=== PATIENT | female | born 1975 | race Hispanic/Latino ===

== ENCOUNTER 2020-07-31 10:52 | Day surgery (SDC) | payer OTHER, BC ==
[2020-07-31 09:44] LABS: Absolute Lymphocytes (CBC) 1.8 K/uL (0.7-4.9); Basophils % 0.8 % (0-1.3); Hematocrit 40.1 % (36.0-45.0); Lymphocytes % 29.9 % (15.3-44.8); MPV 9.9 fL (7.6-11.3); RBC Red Blood Cell Count 4.66 M/uL (3.86-4.86)
[2020-07-31 10:13] LABS: BUN Blood Urea Nitrogen 14 mg/dL (7-18); Bicarbonate 30 mmol/L (21-32); Glucose Level 86 mg/dL (74-106); Potassium 4.1 mmol/L (3.5-5.1); Sodium Level 142 mmol/L (136-145)
--- NOTE | 2020-07-31 10:40 | RAD REPORT ---
EXAM DESCRIPTION: Scarlett Dong (2 Views)07/31/2020 9:41 am CLINICAL HISTORY: Preop for mass removal from left axilla COMPARISON: 2018 FINDINGS: The lungs appear clear of acute infiltrate. The heart is normal size IMPRESSION: No acute abnormalities displayed
[2020-07-31] MEDS ORDERED: Ringers Lactate 1,000 ML IV ONE (11:17)
[2020-07-31] MEDS ORDERED: CEFAZOLIN/SWI 1gm 0 GM/0 ML SYR ONE (11:17)
[2020-07-31] MEDS ORDERED: CIPROFLOXACIN HCL 500 MG TAB PO ONE (12:20)
[2020-07-31] MEDS ORDERED: FENTANYL CITR 100 MCG/2 ML ONE (12:27)
[2020-07-31] MEDS ORDERED: propofoL 200 MG/20 ML VIAL IV ONE (12:28)
[2020-07-31] MEDS ORDERED: LIDOCAINE 2% MPF 5 ML VIAL ONE (12:28)
[2020-07-31] MEDS ORDERED: MIDAZOLAM HCL 2 MG/2 ML INJ ONE (12:29)
[2020-07-31] MEDS ORDERED: ONDANSETRON 4 MG/2 ML VIAL ONE (12:29)
[2020-07-31] MEDS ORDERED: KETOROLAC 30 MG/ML INJ ONE (12:29)
[2020-07-31] MEDS ORDERED: dexAMETHasone 10 MG/ML VIAL ONE (12:29)
[2020-07-31] MEDS ORDERED: CIPROFLOXACIN HCL 500 MG TAB ONE (12:39)
--- NOTE | 2020-07-31 13:12 | P.BOP ---
Preoperative diagnosis: Left axillary infected subQ mass Postoperative diagnosis: same Primary procedure: Excisional biopsy Left axillary infected subQ mass 2.5 x 2.5 cm Estimated blood loss: <10cc Specimen: mass Findings: mass Anesthesia: General Transferred to: Recovery Room Condition: Good
[2020-07-31 13:22] VITALS: O2SAT 100
[2020-07-31] MEDS ORDERED: CODEINE 30MG/APAP 300MG TAB PO ONE (14:20)
[2020-07-31] MEDS ORDERED: CODEINE 30MG/APAP 300MG TAB ONE (14:34)
[2020-07-31 14:36] VITALS: BP 118/79; TEMP 97.2
--- NOTE | 2020-07-31 15:57 | EKG ---
Test Date: 2020-07-31 Test Time: 08:21:22 Advance Agent: SAMARA MEASUREMENT RESULTS: Intervals: Rate: 77 NJ: 158 QRSD: 70 QT: 394 QTc: 445 [place]: P: 66 NJ: 158 QRS: 61 T: 52 INTERPRETIVE STATEMENTS: Normal sinus rhythm Normal ECG No previous ECG available for comparison Electronically Signed On 07-31-20 15:55:59 CDT by Stewart Cantu
--- NOTE | 2020-07-31 21:16 | OP ---
Date of Procedure: 07/31/2020 Surgeon: Stone Neely MD Preoperative Diagnosis: Left axillary infected subcutaneous mass. Postoperative Diagnosis: Left axillary infected subcutaneous mass. Procedure: Excisional biopsy of left axillary infected subcutaneous mass 2.5 x 2.5 cm. Specimen: Mass. Anesthesia: General plus local. Indication: This is a case of a female who comes to us with a tender infected subcutaneous mass. St arted on antibiotics. started to improve, but the mass needs to be removed. Benefits, al ternatives, and risks of excision fully explained which include, but not limited to infection, bleedi ng, damage to adjacent structures, anesthesia complication, recurrence, OH, and even . She also understands this may not relieve her symptoms. She might need more than one surgical intervention a nd she may require wound care. She signed a consent. Procedure In Detail: The patient was brought to the operating room, placed in supine position. Anes thesia was done without complication. The area of concern was previously marked by me and the patien t in the holding room. Time-out was called. Axillary area was prepped and draped in sterile fashion . A small incision was made over the area of concern. Incision was carried down to subcutaneous tis esmer until we found the mass. It was removed. The area was irrigated. Hemostasis was obtained and t hen the area was closed with 3-0 chromic in deep layers and then a nylon in superficial layer. The p atient tolerated the procedure well. Sponge counts and instrument counts correct. The patient sent to Recovery in stable condition. Discharge Summary: Diagnosis: Infected left axillary subcutaneous mass. Procedure: Excisional biopsy of an infected axillary mass. Disposition: Home. Activity: As tolerated. No heavy lifting. May take the dressings out in 48 hours and then put trip le antibiotics and Band-Aid. Condition: Stable. Disposition: Home. HM/MODL Voice ID: [id number] Report ID: [id number]
== END 2020-07-31 14:46 | disposition home or self-care (01) ==
LOC: OR 10:52
PROVIDERS: ATTEND Surgery
PROC: 0JBF0ZZ Excision of Left Upper Arm Subcutaneous Tissue and Fascia, Open Approach (ICD-10-PCS; principal; 2020-07-31 12:00)
DX: L72.0 Epidermal cyst (principal); Z20.822 Contact with and (suspected) exposure to COVID-19
CPT/HCPCS: 93005; 85025; 80048; 36415; 88304; 71046; 11403; U0003; J2704; J2250; J3010; J1100; J7120; J2405; 88305; J0690